=== PATIENT | female | born 1990 | race Caucasian/White ===

== ENCOUNTER 2016-06-28 17:37 | Emergency (ER) | payer OTHER ==
[~2016-06-28 17:37] MED LIST: AMOXICILLIN875 MG PO; FLEXERIL10 MG PO; FLOXIN10 ML OT; MEDROL4 MG/DOSE- PO; NO MEDICATIONS; SILVADENE TOP; VICODIN 5/500 T1 TAB PO; VOLTAREN75 MG PO
== END 2016-06-28 19:20 | disposition home or self-care (01) ==
LOC: CED 17:37
DX: T40.1X1A Poisoning by heroin, accidental (unintentional), initial encounter (principal); F17.210 Nicotine dependence, cigarettes, uncomplicated
CPT/HCPCS: 99283

== ENCOUNTER 2016-07-17 16:21 | Emergency (ER) | payer OTHER ==
[2016-07-18] MEDS ORDERED: NO MEDICATIONS (23:06)
== END 2016-07-17 21:02 | disposition left against medical advice (07) ==
LOC: CED 16:21 → CFTX 16:21 → CED 18:20
DX: Z53.21 Procedure and treatment not carried out due to patient leaving prior to being seen by health care provider (principal)

== ENCOUNTER 2016-07-18 22:58 | Emergency (ER) | payer OTHER ==
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
[2016-07-18] MEDS ORDERED: NO MEDICATIONS (23:06)
== END 2016-07-19 03:14 | disposition home or self-care (01) ==
LOC: SED 22:58
DX: S09.90XA Unspecified injury of head, initial encounter (principal); S01.01XA Laceration without foreign body of scalp, initial encounter; Z23 Encounter for immunization; V43.62XA Car passenger injured in collision with other type car in traffic accident, initial encounter; Y92.410 Unspecified street and highway as the place of occurrence of the external cause
CPT/HCPCS: 70450; 72125; 90471; 90715; 99284

== ENCOUNTER 2016-08-01 13:21 | Emergency (ER) | payer OTHER | END 2016-08-01 14:02 | disposition home or self-care (01) | LOC: SED 13:21 | DX: H66.91 Otitis media, unspecified, right ear (principal); F17.200 Nicotine dependence, unspecified, uncomplicated | CPT/HCPCS: 99282 ==